=== PATIENT | female | born 1945 | race Two or more races ===

== ENCOUNTER 2017-10-05 00:55 | Emergency (ER) | payer BC, MEDICARE, OTHER ==
[~2017-10-05] VITALS: Ht 152.4 cm; Wt 81.6 kg
[~2017-10-05 00:55] MED LIST: AMIT25TA9 OR; BUTA-91; BUTA50TA; DIAZ10TA3 OR; ESCI20TA OR; HYDR25TA4 OR; LEVO50TA66 OR; LISI40TA OR; LUBI24CA6; OXYBUTYNIN 5 MG TABLET; PHEN37.577; PLAVIX; POTA12PO2 PO; POTASSIUM CL ER 20 MEQ TABLET; PREG100C OR; PREMARIN PO; PREVACID; QUET50TA OR; TRIA37.575
[2017-10-05 01:40] LABS: Basophils # (auto) 0.1 uL; Basophils % (auto) 0.9 % (0.0-2.0); Eosinophils # (auto) 0.1 uL; Hematocrit 39.3 % (36.0-46.0); Hemoglobin 13.1 g/dL (12.2-16.2); Lymphocytes # (auto) 0.7 uL; Lymphocytes % (auto) 6.2 % (10.0-50.0); Mean Corpuscular Hemoglobin 30.5 pg (28.0-32.0); Mean Corpuscular Hgb Conc. 33.3 g/dL (32.0-36.0); Mean Corpuscular Volume 91.5 fL (80.0-100.0); Monocytes # (auto) 0.4 uL; Monocytes % (auto) 3.7 % (0.0-12.0); Neutrophils # (auto) 10.4 uL; Neutrophils % (auto) 88.2 % (37.0-80.0); Platelet Count (auto) 283 10^3/uL (140-450); Red Blood Cells 4.29 10^6/uL (4.0-5.20); Red Cell Distribution Width 13.5 % (11.8-14.3); White Blood Cell 11.8 10^3/uL (4.4-10.8)
[2017-10-05 02:07] LABS: Alanine Aminotransferase 21 U/L (13-56); Anion Gap 9 (5-15); Aspartate Aminotransferase 18 U/L (15-37); BUN/Creatinine Ratio 11.3; Blood Urea Nitrogen 12 mg/dL (7-18); Calcium 9.2 mg/dL (8.5-10.1); Carbon Dioxide 27 mmol/L (21-32); Chloride 95 mmol/L (98-107); GFR African American 66 mL/min; GFR Non-African American 54 mL/min; Glucose 167 mg/dL (74-106); Lipase 95 U/L (73-393); Potassium 3.9 mmol/L (3.5-5.1); Sodium 131 mmol/L (136-145)
[2017-10-05 02:15] LABS: Alkaline Phosphatase 96 U/L (45-117); Bilirubin, Total 0.4 mg/dL (0.2-1.0); Total Protein 8.3 g/dL (6.4-8.2)
[2017-10-05] MEDS ORDERED: NALBUPHINE HCL 10 MG/1ml INJECTION IV ONE (03:30)
[2017-10-05] MEDS ORDERED: SODIUM CHLORIDE 0.9% 1,000 ML IV ONE (03:30)
[2017-10-05] MEDS ORDERED: ONDANSETRON HCL 4 MG/2 ML VIAL IV ONE (03:30)
[2017-10-05 06:00] VITALS: BP 137/71
== END 2017-10-05 06:37 | disposition home or self-care (01) ==
LOC: EDBD 00:55 → ER 01:01
DX: K29.70 Gastritis, unspecified, without bleeding (principal); K59.00 Constipation, unspecified; D64.9 Anemia, unspecified; I10 Essential (primary) hypertension; E11.9 Type 2 diabetes mellitus without complications; R19.7 Diarrhea, unspecified; E78.5 Hyperlipidemia, unspecified; Z90.710 Acquired absence of both cervix and uterus
CPT/HCPCS: 36415; 71045; 74176; 80053; 82150; 83690; 84484; 85025; 93005; 96361; 96374; 96375; 99285; J2405; J7030